=== PATIENT | female | born 1985 | race Caucasian/White ===

== ENCOUNTER 2024-12-08 16:04 | Emergency (ER) | payer SELFPAY ==
[2024-12-08] VITALS (8 sets, daily range): BP systolic 107–128; BP diastolic 73–93; PULSE 93–107; RESP 15–18; TEMP 36.6–36.7; O2SAT 95–100; BMI 27.1
--- NOTE | 2024-12-08 16:17 | CT_ITS ---
PROCEDURE INFORMATION: Exam: CT Head Without Contrast Exam date and time: 12/08/2024 5:51 PM Age: 39 years old Clinical indication: Other: Seizure TECHNIQUE: Imaging protocol: Computed tomography of the head without contrast. Radiation optimization: All CT scans at this facility use at least one of these dose optimization techniques: automated exposure control; mA and/or kV adjustment per patient size (includes targeted exams where dose is matched to clinical indication); or iterative reconstruction. COMPARISON: No relevant prior studies available. FINDINGS: Brain: Normal. No hemorrhage. Unremarkable white matter. No mass effect. Cerebral ventricles: No ventriculomegaly. Paranasal sinuses: Visualized sinuses are unremarkable. No fluid levels. Mastoid air cells: Visualized mastoid air cells are well aerated. Bones: Unremarkable. No acute fracture. Soft tissues: Unremarkable. IMPRESSION: No acute intracranial abnormality.
--- NOTE | 2024-12-08 16:17 | ECG_ITS ---
APPROVED REPORT Exam: Resting ECG HR:97 bpm ECG Measurements Heart Rate 97 AXES MO 163 P 66 QRSd 73 QRS 58 QT 336 T 57 QTc 391 Conclusion SINUS RHYTHM WITH OCCASIONAL VENTRICULAR PREMATURE COMPLEXES SEPTAL MYOCARDIAL INFARCTION , PROBABLY OLD [40+ ms Q WAVE IN V1/V2] ABNORMAL ECG UNCONFIRMED REPORT Electronically signed by : Wyatt Hadadd, 12/08/2024 23:34:48
[2024-12-08] MEDS: 0.9 % SODIUM CHLORIDE 1000ML 1,000 ML 999 ML IV (16:23)
[2024-12-08] MEDS: ONDANSETRON 4MG/2ML VIAL 4 MG IV (16:23)
--- NOTE | 2024-12-08 16:23 | ED_ITS ---
<Statement entered by Chuck Haddad MD - 12/08/24 23:33> I was consulted by the DOMINGO, and we discussed the complexity of the problems being addressed. I approved the treatment and management plan for this patient's care in the emergency department, thus performing a substantive portion of the medical decision making. Chuck Haddad MD, YESSICA, FACEP Discharge Plan Disposition Patient Disposition: Home, Self-Care Prescriptions Prescriptions: New levetiracetam [Keppra] 500 mg tablet 500 mg PO Q12H 28 Days Qty: 56 0RF Referrals Follow up/Referrals: Martha Posada MD [Staff Physician, Neurology] - See instructions Activity Restrictions/Add. Instructions Additional Instructions/Restrictions: Increase fluids and rest. Take meds as directed. Please follow-up with Dr. Posada as instructed. Please return to the ED if any problems or concerns Clinical Impressions Clinical Impression: Seizure Instructions Patient Instructions: DI for Syncope in Adults (Fainting), DI for Seizure (Not Epilepsy/Seizure Disorder) Print Language Print Language: Indian Discharge ED Provider: Chuck Haddad General Adult HPI General Chief complaint: Syncope Stated complaint: Seizure Time Seen by Provider: 12/08/24 16:17 History of Present Illness HPI narrative: 39-year-old female presents to the ED via EMS after having a questionable seizure while shopping at [facility]. She says she went to the vitamin section to get a vitamin and states that she saw flashing lights and ended up on a stretcher going out of [facility]. States that her witnessed a blank stare and called EMS. EMS stated that patient had a seizure. Patient has had seizures as a young child when her blood sugar dropped or when she saw flashing lights. But she has not had seizures in many many years. Patient was postictal when EMS arrived. Patient did state that she ate before she arrived to the ED today. Patient at this point feels nauseous and slightly still postictal on arrival to the ED. She says that she had gone to [facility] to get her grandchild. She has no other problems or concerns today. Related Data Previous Rx's ?Medication ?Instructions ?Recorded levetiracetam 500 mg tablet 500 mg PO Q12H 28 days #56 tabs 12/08/24 (Keppra) Allergies Allergy/AdvReac Type Severity Reaction Status Date / Time prochlorperazine (From AdvReac Anxiety Verified 12/08/24 16:21 Compazine) [facility] Disclaimer: The information contained in this section may have been updated after the patient was seen, as this information can be updated by other users. Social History Smoking Status: Former smoker alcohol intake: former current occupational status: other Travel in the last 8 weeks?: None ROS Obtained: Yes Systems reviewed as appropriate & no additional complaints except as documented Constitutional Constitutional: Reports as per HPI Physical Exam General General appearance: alert Head Head exam: atraumatic and normocephalic Eye Eye exam: Present normal appearance, PERRL and EOMI ENT ENT exam: Present normal oropharynx and mucous membranes moist Neck Neck exam: Present full ROM and trachea midline Chest Chest inspection: Present normal inspection Respiratory Respiratory exam: Present normal lung sounds bilaterally Cardiovascular Cardiovascular exam: Present regular rate, normal rhythm, normal heart sounds, +S1 and +S2 Abdominal Exam Abdominal exam: Present soft and normal bowel sounds Extremities Exam Extremities exam: Present normal inspection, full ROM and normal capillary refill Back Exam Back exam: Present normal inspection Neurological Exam Neurological exam: Present alert, oriented X3, normal gait and other (Patient remains postictal and slow to answer but alert and oriented) Skin Skin exam: Present warm, dry and intact Medical Decision Making Medical Records Medical records reviewed: Yes I reviewed the patient's medical records. Screening: Per USPSTF and CDC recommendations, given the prevalence of disease in our region, it is our hospital?s policy to screen for HIV and viral Hepatitis for all patients aged 18 and over and those with ongoing risk factors. Jed Inquiry Pt receiving controlled substance: No Vital Signs: 12/08/24 16:21 12/08/24 16:29 12/08/24 16:30 Temperature 97.8 F 97.8 F Temperature Source Oral Oral Pulse Rate 93 H 102 H Pulse Rate [Right] 93 H Respiratory Rate 16 16 18 Blood Pressure 116/93 H 115/88 Blood Pressure [Right Arm] 116/93 H Blood Pressure Mean 99 Blood Pressure Mean [Right Arm] 100 Blood Pressure Source Automatic Cuff Blood Pressure Source [Right Arm] Automatic Cuff Blood Pressure Position Supine Blood Pressure Position [Right Arm] Supine 02 Sat by Pulse Oximetry 100 100 96 Oxygen Delivery Method Room Air Room Air 12/08/24 17:00 12/08/24 17:30 12/08/24 18:00 Temperature Temperature Source Pulse Rate 102 H 107 H 99 H Pulse Rate [Right] Respiratory Rate 18 17 17 Blood Pressure 107/73 L 118/90 114/84 Blood Pressure [Right Arm] Blood Pressure Mean 84 Blood Pressure Mean [Right Arm] Blood Pressure Source Blood Pressure Source [Right Arm] Blood Pressure Position Blood Pressure Position [Right Arm] 02 Sat by Pulse Oximetry 95 98 96 Oxygen Delivery Method Room Air Room Air 12/08/24 19:30 12/08/24 19:57 Temperature 98.0 F Temperature Source Oral Pulse Rate 98 H 96 H Pulse Rate [Right] Respiratory Rate 15 15 Blood Pressure 128/78 128/78 Blood Pressure [Right Arm] Blood Pressure Mean Blood Pressure Mean [Right Arm] Blood Pressure Source Blood Pressure Source [Right Arm] Blood Pressure Position Supine Blood Pressure Position [Right Arm] 02 Sat by Pulse Oximetry 96 Oxygen Delivery Method Room Air Lab Data Lab Results 12/08/24 16:00: WBC 12.6 H, RBC 4.57, Hgb 13.1, Hct 40.6, MCV 88.8, MCH 28.7, MCHC 32.3, RDW 12.2, Plt Count 430 H, MPV 10.2, Neut % (Auto) 44.2, Lymph % (Auto) 47.6, [place] % (Auto) 6.3, Eos % (Auto) 1.0, Baso % (Auto) 0.6, Neut # (Auto) 5.6, Lymph # (Auto) 6.0 H, [place] # (Auto) 0.8, Eos # (Auto) 0.1, Baso # (Auto) 0.1, Total Counted 100, Neutrophils % (Manual) 40 L, Lymphocytes % (Manual) 56 H, Monocytes % (Manual) 2, Eosinophils % (Manual) 1, Basophils % (Manual) 1.0, Platelet Estimate Slight increase, Giant Platelets 1+, Sodium 138, Potassium 3.4 L, Chloride 99, Carbon Dioxide 18 L, Anion Gap 24.4 H, BUN 13, Creatinine 0.70, Estimated Creat Clear 116, Estimated GFR 92, Est GFR ( Amer) 112, Glucose 90, Calcium 9.6, Magnesium 2.3, Total Bilirubin 0.5, AST 46 H , ALT 30, Alkaline Phosphatase 76, Total Creatine Kinase 109, Total Protein 8.4 H, Albumin 5.1 H, Globulin 3.3 H, Albumin/Globulin Ratio 1.5, Lipase 90, HCV Ab REANNA w/Rflx PCR Qn Negative, HIV Ag/Ab Combo Qual Negative 12/08/24 16:25: Urine HCG, Qual Negative 12/08/24 17:21: Urine Color Yellow, Urine Appearance Clear, Urine pH 5.5, Ur Specific Martin 1.020, Urine Protein 1+ A, Urine Glucose (UA) Negative, Urine Ketones Negative, Urine Blood Trace-i, Urine Nitrate Negative, Urine Bilirubin Negative, Urine Urobilinogen 0.2, Ur Leukocyte Esterase Negative, Urine RBC 3-5, Urine WBC Occasional, Ur Squamous Epith Cells 5-10, Urine Bacteria 1+ 12/08/24 17:23: Urine Opiates Screen Negative, Urine Methadone Screen Negative, Ur Barbituates Screen Negative, Ur Phencyclidine Scrn Negative, Ur Amphetamines Screen Negative, U Benzodiazepines Scrn Negative, Urine Cocaine Screen Negative, U Marijuana (THC) Screen Negative 12/08/24 17:35: Lactate 1.4 12/08/24 16:00 12/08/24 16:00 Orders (Tests/Meds): ED MEDICATIONS Discontinued Medications Generic Name Dose Route Start Last Admin Trade Name Freq PRN Reason Stop Dose Admin Sodium Chloride 1,000 mls @ 999 mls/hr 12/08/24 16:16 12/08/24 16:23 Sod Chlor 0.9% 1000ml Bag IV 12/08/24 17:16 999 mls/hr .Q1H1M ONE Administration Levetiracetam 1,500 mg/ Sodium 115 mls @ 230 mls/hr 12/08/24 16:43 12/08/24 16:53 Chloride IV 12/08/24 16:44 230 mls/hr ONCE ONE Administration Ketorolac Tromethamine 30 mg 12/08/24 19:44 12/08/24 19:47 Ketorolac 30mg/Ml Vial IV 12/08/24 19:45 30 mg ONCE ONE Administration Ondansetron HCl 4 mg 12/08/24 16:17 12/08/24 16:23 Ondansetron 4mg/2ml Vial IV 12/08/24 16:18 4 mg ONCE ONE Administration Potassium Chloride 40 meq 12/08/24 17:45 12/08/24 18:28 Potassium Chloride 20meq Tab PO 12/08/24 17:46 40 meq ONCE ONE Administration ORDERS Category Date Time Status CT head/brain wo con Stat Cat Scan 12/08/24 16:17 Completed CBC [Complete Blood Count Auto Diff] Stat Lab 12/08/24 16:00 Completed Comprehensive Metabolic Panel Stat Lab 12/08/24 16:00 Completed Creatine Kinase Stat Lab 12/08/24 16:00 Completed Drug Screen,Urine Stat Lab 12/08/24 17:23 Completed HIV Combo Stat Lab 12/08/24 16:00 Completed Hepatitis C Ab Qual. W/ RFX Stat Lab 12/08/24 16:00 Completed Lactic Acid Stat Lab 12/08/24 17:35 Completed Lipase Stat Lab 12/08/24 16:00 Completed Magnesium Stat Lab 12/08/24 16:00 Completed Urinalysis and Microscopic Stat Lab 12/08/24 17:21 Completed Urine , HCG Qual. Stat Lab 12/08/24 16:25 Completed Medical Decision Narrative: patient is a 39-year-old female presenting to the emergency department for evaluation of seizure while at [facility]. Patient is hemodynamically stable and nontoxic-appearing upon arrival, afebrile. Differential diagnosis includes seizure, syncope, among others. Workup will be conducted with hematologic labs, specific imaging, provocative tests. Initial inventions include crystalloid bolus, analgesics. Initial workup reviewed by me hematologic labs are remarkable for elevated white count of 12.6, hypokalemia. Imaging informally interpreted by me and remarkable for nothing acute on CT scan. Formal imaging read remarkable for nothing acute. Upon repeat evaluation patient's pain is improved. Patient is safe for discharge home. Discussed with patient and her that she is not to drive for the next 90 days as she has had a seizure. She is going to follow-up with Dr. Posada which is neurology. Critical Care Critical Care Time Critical Care Time: No
[2024-12-08 16:28] LABS: Hematocrit 40.6 % (37.0-47.0); Hemoglobin 13.1 g/dL (12.2-16.2); Immature Granulocytes % 0.3 %; Mean Corpuscular HGB Conc 32.3 g/dL (31.8-35.4); Mean Corpuscular Hemoglobin 28.7 pg (27.0-31.2); Mean Corpuscular Volume 88.8 fl (81-99); Nucleated Red Blood Cells % 0 %; Platelet Count 430 K/mm3 (142-424); Red Blood Count 4.57 M/mm3 (4.20-5.40); Red Cell Distribution Width-SD 39.4 fL; White Blood Count 12.6 K/mm3 (4.8-10.8)
[2024-12-08 16:34] LABS: Creatine Kinase 109 U/L (30-135)
[2024-12-08 16:35] LABS: Alanine Aminotransferase 30 U/L (12-78); Albumin Level 5.1 g/dl (3.5-5.0); Albumin/Globulin Ratio 1.5 (1.1-1.8); Alkaline Phosphatase 76 U/L (38-126); Anion Gap 24.4 mEq/L (5-15); Aspartate Amino Transferase 46 U/L (14-36); Bilirubin,Total 0.5 mg/dl (0.2-1.3); Blood Urea Nitrogen 13 mg/dl (7-17); Calcium 9.6 mg/dl (8.4-10.2); Carbon Dioxide 18 mmol/L (22.0-30.0); Chloride 99 mmol/L (98-107); Creatinine Clearance Estimated 116 mL/min (50-200); Creatinine,Serum 0.70 mg/dl (0.52-1.04); Estimated Glomerular Filt Rate 92 ml/min (>60); GFR (African American) 112 ML/MIN (>60); Globulin 3.3 g/dL (1.3-3.2); Glucose 90 mg/dl (74-100); Lipase 90 U/L (23-300); Magnesium 2.3 mg/dl (1.6-2.3); Potassium 3.4 mmoL/L (3.5-5.1); Sodium 138 mmol/L (136-145); Total Protein,Serum 8.4 g/dl (6.3-8.2)
[2024-12-08] MEDS: levETIRAcetam 1,500 MG in 0.9 % SODIUM CHLORIDE 100 ML 230 MG IV (16:53)
--- NOTE | 2024-12-08 17:17 | PC.NURSE ---
pt to the restroom
[2024-12-08 17:27] LABS: Microscopic, Urine URINE MICROSCOPIC (MICROSCOPIC)
--- NOTE | 2024-12-08 17:28 | PC.NURSE ---
Pt reports that her head doesn't feel right. pt is unable to explain what it feels like. Notified provider.
[2024-12-08 17:32] LABS: Bilirubin,Urine Negative (Negative); Color,Urine YELLOW (Yellow); Glucose,Urine (UA) Negative (Negative); Ketones,Urine Negative (Negative); Leukocyte Esterase,Urine Negative (Negative); PH,Urine 5.5 (5.0-8.5); Protein,Urine 1+ (Negative); Specific Gravity, Urine 1.020 (1.005-1.030); Urobilinogen,Urine 0.2 EU/dl (0.2)
[2024-12-08 17:33] LABS: Hepatitis C Ab Qual. W/ RFX NEGATIVE (Negative)
[2024-12-08 17:35] LABS: Urine Pregnancy, HCG Qual. Negative (Negative)
[2024-12-08 17:37] LABS: Giant Platelets 1+; Total Cells Counted 100
[2024-12-08 17:44] LABS: Amphetamine/Metha Screen,Urine Negative ng/ml (<1000); Barbiturates Screen,Urine Negative ng/ml (<200)
[2024-12-08 17:45] LABS: Benzodiazepines Screen,Urine Negative ng/ml (<200)
[2024-12-08 17:47] LABS: Methadone Screen,Urine Negative ng/ml (<300)
--- NOTE | 2024-12-08 17:47 | PC.NURSE ---
pt going for CT at this time via bed with mechanical engineering technician
[2024-12-08 17:48] LABS: Opiate Screen,Urine Negative ng/ml (<300); Phencyclidine Screen,Urine Negative ng/ml (<25)
[2024-12-08 17:52] LABS: Bacteria,Urine 1+ /lpf; WBC,Urine Occasional #/hpf (0-3)
[2024-12-08] MEDS: POTASSIUM CHLORIDE 20MEQ TAB 40 MEQ PO (18:28)
[2024-12-08] MEDS: KETOROLAC 30MG/ML VIAL 30 MG IV (19:47)
== END 2024-12-08 20:11 | disposition home or self-care (01) ==
PROVIDERS: Nurse Practitioner; Emergency Provider Student in an Organized Health Care Education/Training Program
DX: R56.9 Unspecified convulsions (principal); E87.6 Hypokalemia; R11.0 Nausea; Z87.891 Personal history of nicotine dependence; Z11.59 Encounter for screening for other viral diseases; Z11.4 Encounter for screening for human immunodeficiency virus [HIV]
CPT/HCPCS: 70450; 80053; 80307; 81001; 81025; 82550; 83605; 83690; 83735; 85007; 85025; 85027; 86803; 87389; 93005; 96361; 96374; 96375; 99285; J1885; J1953; J2405; J7030

== ENCOUNTER 2024-12-14 06:15 | Emergency (ER) | payer BC, SELFPAY ==
[2024-12-14] VITALS (10 sets, daily range): BP systolic 115–132; BP diastolic 79–97; PULSE 72–92; RESP 16–31; TEMP 36.9–37.1; O2SAT 96–100; BMI 26.5
--- NOTE | 2024-12-14 06:28 | ECG_ITS ---
APPROVED REPORT Exam: Resting ECG HR:88 bpm ECG Measurements Heart Rate 88 AXES [place] 189 P 60 QRSd 62 QRS 43 QT 332 T 53 QTc 378 Conclusion SINUS RHYTHM LOW QRS VOLTAGE IN PRECORDIAL LEADS [QRS DEFLECTION < 1.0 mV IN CHEST LEADS] No STEMI Electronically signed by : DARYL JUDGE, 12/16/2024 07:07:48
--- NOTE | 2024-12-14 06:29 | XR_ITS ---
FINAL REPORT CLINICAL HISTORY: seizures, looking for possible infectious source COMPARISON: None FINDINGS: A single frontal view of the chest was obtained. No acute pulmonary opacity is present. There is no evidence of effusion or pneumothorax. Mediastinum is unremarkable. Heart size is normal. IMPRESSION: No acute abnormality. Reviewed, Interpreted and Dictated by Leatha Cerda MD Transcribed by Katalina Larsen Authenticated and [facility]
--- NOTE | 2024-12-14 06:37 | HMH.EDGENADL ---
Discharge Plan Disposition Patient Disposition: Xfer Other Condition: Good Prescriptions Prescriptions: No Action levetiracetam [Keppra] 500 mg tablet 500 mg PO Q12H 28 Days Qty: 56 0RF Clinical Impressions Clinical Impression: Seizure-like activity Instructions Patient Instructions: DI for Seizure Disorder -- Adult, DI for Seizure (Not Epilepsy/Seizure Disorder) Print Language Print Language: Faroese Discharge ED Provider: Jag Winter General Adult HPI <Jag Winter MD - Last Filed: 12/14/24 06:54> General Chief complaint: Seizure Stated complaint: multiple seizures Time Seen by Provider: 12/14/24 06:15 Mode of Arrival: Ambulatory Source of Information: Patient Description of Symptoms (Recalled from ER Triage Doc. by RN): pt presents to the ED d/t complaints of four possible seizures. pt had first seizure on tuesday, pt given keppra 500 mg that she took this morning at 0430. pt states during some of her seizure she would tense up and stopped breathing at one point for about 10-15 seconds. pr pt also repeated herself twice in the car and did not return to full baseline in between seizures while laying in bed. pt reports ongoing Headache same as yesterday. History of Present Illness HPI narrative: 39-year-old female presents to the ER with family for concerns of seizures. Reportedly as a child, patient had verbal seizures and seizures where she spaced out but those resolved with age. Patient had been completely normal until 5 days ago (Tuesday) when she had her first ever convulsive seizure. She was brought to this ER and received an evaluation that was relatively unremarkable and was discharged on Keppra. Patient and family at bedside reports they have been struggling to get any appointments for neurology because every office is 3 to 4 months out. Since the seizure on Tuesday, patient has had chronic headache with no numbness, tingling, or weakness, but she has continued to feel foggy since that time. reports that patient did not have any seizures on Tuesday, Tuesday, or Tuesday, but that yesterday she had 1 episode where she appeared to stare off into space and not be aware of what was going on. This morning patient took her regular Keppra but 1 hour prior to arrival she had a seizure while laying with her . He states her head was on his chest and she stopped breathing for 10 to 15 seconds but was having abnormal movements and seemed like she was pushing on his chest. This did not last long but she was foggy afterwards. She did eventually return to her current baseline (feeling foggy but oriented and moving independently), she then had 2 more brief convulsive seizures. She has not fallen and struck her head, she returns to her current baseline in between each of these episodes as well. They got in the car and on the way here patient had an episode where she was looking at the cain and made multiple repetitive statements about how her and son would really like the cain tonight. Patient does not remember this happening. She is back to baseline now. states that patient has not truly been at a normal baseline in the last week and that her current baseline is foggy but oriented and able to move independently. Patient denies any numbness, tingling, or weakness. She states before her seizures happen she often sees fireworks in her vision and describes [id number] flashers. states he has not noticed any directional eye deviation during seizures. Patient has had no recent trauma, no falls, no recent illness, she has no fevers, chills, chest pain, difficulty breathing, nausea, vomiting, diarrhea, dysuria, hematuria, or any other associated symptoms of illness. She is taking her Keppra as prescribed. Related Data Previous Rx's ?Medication ?Instructions ?Recorded levetiracetam 500 mg tablet 500 mg PO Q12H 28 days #56 tabs 12/08/24 (Keppra) Allergies Allergy/AdvReac Type Severity Reaction Status Date / Time prochlorperazine (From AdvReac Anxiety Verified 12/08/24 16:21 Compazine) [facility] <Jag Winter MD - Last Filed: 12/14/24 06:54> [facility] Disclaimer: The information contained in this section may have been updated after the patient was seen, as this information can be updated by other users. Social History (Updated 12/08/24 @ 20:09 by Nelda Solo (ED), PHYSICIAN LIAISON) Smoking Status: Never smoker alcohol intake: former current occupational status: other Travel in the last 8 weeks?: None Have you lived/traveled outside US in past 30 days?: No Contact w/someone who lives/traveled outside US past 30 days?: No Exposure to someone with infectious disease in past 14 days?: No Do you have a fever (greater than 100.4 F or 38 C)?: No Have you tested positive for COVID-19?: No Exposed to someone with COVID-19 in past 14 days?: No Do you have a sore throat?: No Do you have a cough?: No Do you have any weakness?: No Do you have any diarrhea?: No Are you experiencing any unusual bleeding?: No Do you have any muscle aches/pain?: No Do you have any abdominal pain?: No Are you experiencing loss of taste or smell?: No <Jag Winter MD - Last Filed: 12/14/24 06:54> ROS Obtained: Yes Systems reviewed as appropriate & no additional complaints except as documented per HPI Physical Exam <Jag Winter MD - Last Filed: 12/14/24 06:54> General General appearance: alert and in no apparent distress Comment: Patient does not appear to be in acute distress but appears that she does not feel well Head Head exam: atraumatic and normocephalic Eye Eye exam: Present PERRL and EOMI; Absent conjunctival injection ENT ENT exam: Present mucous membranes moist Neck Neck exam: Present normal inspection and full ROM; Absent tenderness or meningismus Chest Chest inspection: Present symmetric chest wall rise; Absent tenderness Respiratory Respiratory exam: Present normal lung sounds bilaterally; Absent respiratory distress, wheezes or stridor Cardiovascular Cardiovascular exam: Present regular rate and normal rhythm Abdominal Exam Abdominal exam: Present soft; Absent distention, tenderness, guarding or rebound Extremities Exam Extremities exam: Present full ROM; Absent tenderness, edema or joint swelling Back Exam Back exam: Present full ROM; Absent tenderness Neurological Exam Neurological exam: Present alert, oriented X3, CN II-XII intact, normal gait (Walking slow on arrival to the ER but normal-appearing gait) and other (Normal finger-nose and [id number], no cerebellar symptoms, NIH 0); Absent motor sensory deficit Psychiatric Psychiatric exam: Present normal affect and normal mood Skin Skin exam: Present warm and dry Medical Decision Making <Jag Winter MD - Last Filed: 12/14/24 06:54> Medical Records Medical records reviewed: Yes I reviewed the patient's medical records. Screening: Per USPSTF and CDC recommendations, given the prevalence of disease in our region, it is our hospital?s policy to screen for HIV and viral Hepatitis for all patients aged 18 and over and those with ongoing risk factors. MR Comment: Unremarkable laboratory workup on 12/08/2024 aside from mild leukocytosis, thrombocythemia, slight AST elevation and elevated anion gap none of which are specific for any exact pathology. CT head from 12/08/2024 unremarkable. Jed Inquiry Pt receiving controlled substance: No Vital Signs: 12/14/24 06:24 12/14/24 06:30 12/14/24 06:59 Temperature 98.4 F Temperature Source Oral Pulse Rate 78 89 Pulse Rate [Right Radial] 92 H Respiratory Rate 17 19 31 H Blood Pressure 122/97 H 124/94 H Blood Pressure [Right Arm] 120/89 Blood Pressure Mean Blood Pressure Mean [Right Arm] 99 Blood Pressure Position [Right Arm] Supine 02 Sat by Pulse Oximetry 98 96 98 Oxygen Delivery Method Room Air Room Air Room Air 12/14/24 07:30 12/14/24 08:00 Temperature Temperature Source Pulse Rate 80 78 Pulse Rate [Right Radial] Respiratory Rate 26 H 21 Blood Pressure 119/86 127/86 Blood Pressure [Right Arm] Blood Pressure Mean 99 Blood Pressure Mean [Right Arm] Blood Pressure Position [Right Arm] 02 Sat by Pulse Oximetry 100 98 Oxygen Delivery Method Room Air Room Air Lab Data Lab Results 12/14/24 06:23: WBC 8.4, RBC 4.57, Hgb 13.3, Hct 40.6, MCV 88.8, MCH 29.1, MCHC 32.8, RDW 12.2, Plt Count 370, MPV 10.0, Neut % (Auto) 61.0, Lymph % (Auto) 29.9, [place] % (Auto) 6.3, Eos % (Auto) 1.8, Baso % (Auto) 0.6, Neut # (Auto) 5.2, Lymph # (Auto) 2.5, [place] # (Auto) 0.5, Eos # (Auto) 0.2, Baso # (Auto) 0.1, Sodium 139, Potassium 4.1, Chloride 99, Carbon Dioxide 30, Anion Gap 14.1, BUN 13, Creatinine 0.70, Estimated Creat Clear 114, Estimated GFR 92, Est GFR ( Amer) 112, Glucose 98, Calcium 9.5, Total Bilirubin 0.4, AST 29, ALT 17, Alkaline Phosphatase 67, Total Protein 8.2, Albumin 4.8, Globulin 3.4 H, Albumin/Globulin Ratio 1.4, Serum HCG, Qual Negative, Plasma/Serum Alcohol < 10 12/14/24 06:29: VBG pH 7.31, VBG pCO2 48.0, VBG pO2 27.0 L, VBG HCO3 23.7, VBG Total CO2 25.2, VBG O2 Saturation 57.4, VBG Base Excess -2.6 L, VBG Lactic Acid 1.5 12/14/24 06:50: Urine Color Yellow, Urine Appearance Clear, Urine pH 6.0, Ur Specific [place] 1.010, Urine Protein Negative, Urine Glucose (UA) Negative, Urine Ketones Negative, Urine Blood Trace-i, Urine Nitrate Negative, Urine Bilirubin Negative, Urine Urobilinogen 0.2, Ur Leukocyte Esterase Negative, Urine RBC None, Urine WBC Occasional, Ur Squamous Epith Cells 5-10, Urine Bacteria 1+ 12/14/24 06:23 12/14/24 06:23 Orders (Tests/Meds): ED MEDICATIONS Discontinued Medications Generic Name Dose Route Start Last Admin Trade Name Ava PRN Reason Stop Dose Admin Acetaminophen 1,000 mg 12/14/24 06:29 12/14/24 06:39 Acetaminophen 500mg Tab PO 12/14/24 06:30 1,000 mg ONCE ONE Administration Levetiracetam 2,500 mg/ Sodium 125 mls @ 250 mls/hr 12/14/24 06:29 12/14/24 06:40 Chloride IV 12/14/24 06:30 250 mls/hr ONCE ONE Administration Lactated Ringer's 1,000 mls @ 999 mls/hr 12/14/24 06:29 12/14/24 06:40 Lactated Ringer's 1000 Ml Bag IV 12/14/24 07:29 999 mls/hr .Q1H1M ONE Administration Ketorolac Tromethamine 15 mg 12/14/24 06:29 12/14/24 06:39 Ketorolac 30mg/Ml Vial IV 12/14/24 06:30 15 mg ONCE ONE Administration ORDERS Category Date Time Status CXR --portable [XR chest portable] Stat Exams 12/14/24 06:29 Completed CBC w/Auto Diff [Complete Blood Count Auto Diff] Stat Lab 12/14/24 06:23 Completed CMP [Comprehensive Metabolic Panel] Stat Lab 12/14/24 06:23 Completed Ethanol [Ethyl Alcohol] Stat Lab 12/14/24 06:23 Completed HCG Qualitative, Serum Stat Lab 12/14/24 06:23 Completed Levetiracetam (Keppra) Stat Lab 12/14/24 06:23 Received UDS [Drug Screen,Urine] Stat Lab 12/14/24 06:55 Received Urinalysis and Microscopic Stat Lab 12/14/24 06:50 Completed VBG [Venous Blood Gas] Stat RT 12/14/24 06:29 Completed ECG Request Stat Y 12/14/24 06:29 Ordered Medical Decision Narrative: In summary, this 39-year-old female with childhood seizures and now recent episodes of seizures again presents to the emergency department today with seizure activity. On initial evaluation patient is hemodynamically stable, afebrile, independently ambulatory into the ER, GCS 15, patient appears generally sluggish but is answering all questions appropriately, no neurologic deficits, NIH 0, exam is otherwise benign and reassuring. No seizure activity on arrival to the ER. Differential diagnosis includes but is not limited to generalized seizure, focal seizure, absence seizure, I considered intracranial mass however CT head within the last week did not demonstrate acute intracranial bleed, mass, or midline shift. I considered the possibility of atypical migraine, also considered status epilepticus however patient returned to her current baseline in between each seizure episode this morning according to the , with patient's headache I had considered acute intracranial bleed however she has no red flag symptoms, no thunderclap onset, it has been chronic since the time of her initial seizure nearly a week ago, she reports being compliant with her medication but I did consider intoxication, metabolic abnormality, I considered hypoglycemia but fingerstick glucose on arrival was 97, also considered possible infectious etiology like pneumonia, urinary tract infection though I do not have high suspicion for these based on HPI and exam. Ruling out most morbid conditions for my assessment. Based on these concerns, I ordered serum labs, chest x-ray, drug screen, ethanol level, urine studies. ECG personally interpreted demonstrates normal sinus rhythm, rate 88, normal axis, normal AL and QTc, no STEMI. Patient received IV fluids, Keppra load, Tylenol and Toradol initially for treatment. Tylenol and Toradol are for patient's headache. Labs personally reviewed demonstrate normal CBC, VBG with normal pH, VBG lactic 1.5, additional labs pending at the time of physician handoff. Radiology studies pending at time of physician handoff. I anticipate this patient will likely need advanced workup and likely transfer to higher level of care for neurology workup and have communicated this with the oncoming physician. Patient handed off to Dr. Martinez in stable condition pending lab and imaging results. <Abimael Martinez, DO - Last Filed: 12/14/24 08:11> Vital Signs: 12/14/24 06:24 12/14/24 06:30 12/14/24 06:59 Temperature 98.4 F Temperature Source Oral Pulse Rate 78 89 Pulse Rate [Right Radial] 92 H Respiratory Rate 17 19 31 H Blood Pressure 122/97 H 124/94 H Blood Pressure [Right Arm] 120/89 Blood Pressure Mean Blood Pressure Mean [Right Arm] 99 Blood Pressure Position [Right Arm] Supine 02 Sat by Pulse Oximetry 98 96 98 Oxygen Delivery Method Room Air Room Air Room Air 12/14/24 07:30 12/14/24 08:00 Temperature Temperature Source Pulse Rate 80 78 Pulse Rate [Right Radial] Respiratory Rate 26 H 21 Blood Pressure 119/86 127/86 Blood Pressure [Right Arm] Blood Pressure Mean 99 Blood Pressure Mean [Right Arm] Blood Pressure Position [Right Arm] 02 Sat by Pulse Oximetry 100 98 Oxygen Delivery Method Room Air Room Air Lab Data Lab Results 12/14/24 06:23: WBC 8.4, RBC 4.57, Hgb 13.3, Hct 40.6, MCV 88.8, MCH 29.1, MCHC 32.8, RDW 12.2, Plt Count 370, MPV 10.0, Neut % (Auto) 61.0, Lymph % (Auto) 29.9, [place] % (Auto) 6.3, Eos % (Auto) 1.8, Baso % (Auto) 0.6, Neut # (Auto) 5.2, Lymph # (Auto) 2.5, [place] # (Auto) 0.5, Eos # (Auto) 0.2, Baso # (Auto) 0.1, Sodium 139, Potassium 4.1, Chloride 99, Carbon Dioxide 30, Anion Gap 14.1, BUN 13, Creatinine 0.70, Estimated Creat Clear 114, Estimated GFR 92, Est GFR ( Amer) 112, Glucose 98, Calcium 9.5, Total Bilirubin 0.4, AST 29, ALT 17, Alkaline Phosphatase 67, Total Protein 8.2, Albumin 4.8, Globulin 3.4 H, Albumin/Globulin Ratio 1.4, Serum HCG, Qual Negative, Plasma/Serum Alcohol < 10 12/14/24 06:29: VBG pH 7.31, VBG pCO2 48.0, VBG pO2 27.0 L, VBG HCO3 23.7, VBG Total CO2 25.2, VBG O2 Saturation 57.4, VBG Base Excess -2.6 L, VBG Lactic Acid 1.5 12/14/24 06:50: Urine Color Yellow, Urine Appearance Clear, Urine pH 6.0, Ur Specific [place] 1.010, Urine Protein Negative, Urine Glucose (UA) Negative, Urine Ketones Negative, Urine Blood Trace-i, Urine Nitrate Negative, Urine Bilirubin Negative, Urine Urobilinogen 0.2, Ur Leukocyte Esterase Negative, Urine RBC None, Urine WBC Occasional, Ur Squamous Epith Cells 5-10, Urine Bacteria 1+ Orders (Tests/Meds): ED MEDICATIONS Discontinued Medications Generic Name Dose Route Start Last Admin Trade Name Freq PRN Reason Stop Dose Admin Acetaminophen 1,000 mg 12/14/24 06:29 12/14/24 06:39 Acetaminophen 500mg Tab PO 12/14/24 06:30 1,000 mg ONCE ONE Administration Levetiracetam 2,500 mg/ Sodium 125 mls @ 250 mls/hr 12/14/24 06:29 12/14/24 06:40 Chloride IV 12/14/24 06:30 250 mls/hr ONCE ONE Administration Lactated Ringer's 1,000 mls @ 999 mls/hr 12/14/24 06:29 12/14/24 06:40 Lactated Ringer's 1000 Ml Bag IV 12/14/24 07:29 999 mls/hr .Q1H1M ONE Administration Ketorolac Tromethamine 15 mg 12/14/24 06:29 12/14/24 06:39 Ketorolac 30mg/Ml Vial IV 12/14/24 06:30 15 mg ONCE ONE Administration ORDERS Category Date Time Status CXR --portable [XR chest portable] Stat Exams 12/14/24 06:29 Completed CBC w/Auto Diff [Complete Blood Count Auto Diff] Stat Lab 12/14/24 06:23 Completed CMP [Comprehensive Metabolic Panel] Stat Lab 12/14/24 06:23 Completed Ethanol [Ethyl Alcohol] Stat Lab 12/14/24 06:23 Completed HCG Qualitative, Serum Stat Lab 12/14/24 06:23 Completed Levetiracetam (Keppra) Stat Lab 12/14/24 06:23 Received UDS [Drug Screen,Urine] Stat Lab 12/14/24 06:55 Received Urinalysis and Microscopic Stat Lab 12/14/24 06:50 Completed VBG [Venous Blood Gas] Stat RT 12/14/24 06:29 Completed ECG Request Stat Y 12/14/24 06:29 Ordered Medical Decision Narrative: In summary, this 39-year-old female with childhood seizures and now recent episodes of seizures again presents to the emergency department today with seizure activity. On initial evaluation patient is hemodynamically stable, afebrile, independently ambulatory into the ER, GCS 15, patient appears generally sluggish but is answering all questions appropriately, no neurologic deficits, NIH 0, exam is otherwise benign and reassuring. No seizure activity on arrival to the ER. Differential diagnosis includes but is not limited to generalized seizure, focal seizure, absence seizure, I considered intracranial mass however CT head within the last week did not demonstrate acute intracranial bleed, mass, or midline shift. I considered the possibility of atypical migraine, also considered status epilepticus however patient returned to her current baseline in between each seizure episode this morning according to the , with patient's headache I had considered acute intracranial bleed however she has no red flag symptoms, no thunderclap onset, it has been chronic since the time of her initial seizure nearly a week ago, she reports being compliant with her medication but I did consider intoxication, metabolic abnormality, I considered hypoglycemia but fingerstick glucose on arrival was 97, also considered possible infectious etiology like pneumonia, urinary tract infection though I do not have high suspicion for these based on HPI and exam. Ruling out most morbid conditions for my assessment. Based on these concerns, I ordered serum labs, chest x-ray, drug screen, ethanol level, urine studies. ECG personally interpreted demonstrates normal sinus rhythm, rate 88, normal axis, normal AL and QTc, no STEMI. Patient received IV fluids, Keppra load, Tylenol and Toradol initially for treatment. Tylenol and Toradol are for patient's headache. Labs personally reviewed demonstrate normal CBC, VBG with normal pH, VBG lactic 1.5, additional labs pending at the time of physician handoff. Radiology studies pending at time of physician handoff. I anticipate this patient will likely need advanced workup and likely transfer to higher level of care for neurology workup and have communicated this with the oncoming physician. Patient handed off to Dr. Martinez in stable condition pending lab and imaging results. Dr. Martinez I received care from Dr. Winter this morning on this patient. At the time of handoff we were pending her laboratory workup. Labs personally interpreted by me demonstrate no actionable abnormalities. Due to the fact that this patient is experiencing increasing frequency of seizure-like activity and has a new baseline mental status from 1 week ago I do feel like she needs a more formal and urgent workup with neurology. I have formally consulted the neurology service at [facility] in [place]. After speaking with Dr. Mayen of the neurology service they have agreed to accept the patient for transfer to their facility for formal workup with EEG and MRI. Patient will be direct transfer admission to internal medicine service. Patient was transferred in stable condition. Critical Care <Jag Witner MD - Last Filed: 12/14/24 06:54> Critical Care Time Critical Care Time: No
[2024-12-14 06:39] LABS: Lactate Venous 1.5 mmol/L (0.4-2.0); VBG HCO3 23.7 mmol/L (23-30); VBG PCO2 48.0 mmol/L (35-51); VBG PH 7.31 mmol/L (7.31-7.41); VBG PO2 27.0 mmol/L (28-40)
[2024-12-14] MEDS: ACETAMINOPHEN 500MG TAB 1000 MG PO (06:39)
[2024-12-14] MEDS: KETOROLAC 30MG/ML VIAL 15 MG IV (06:39)
[2024-12-14] MEDS: LACTATED RINGERS 1000ML 1,000 ML 999 ML IV (06:40)
[2024-12-14] MEDS: levETIRAcetam 2,500 MG in 0.9 % SODIUM CHLORIDE 100 ML 250 MG IV (06:40)
[2024-12-14 06:45] LABS: Hematocrit 40.6 % (37.0-47.0); Hemoglobin 13.3 g/dL (12.2-16.2); Immature Granulocytes % 0.4 %; Mean Corpuscular HGB Conc 32.8 g/dL (31.8-35.4); Mean Corpuscular Hemoglobin 29.1 pg (27.0-31.2); Mean Corpuscular Volume 88.8 fl (81-99); Nucleated Red Blood Cells % 0 %; Platelet Count 370 K/mm3 (142-424); Red Blood Count 4.57 M/mm3 (4.20-5.40); Red Cell Distribution Width-SD 39.2 fL; White Blood Count 8.4 K/mm3 (4.8-10.8)
[2024-12-14 06:52] LABS: Alanine Aminotransferase 17 U/L (12-78); Albumin Level 4.8 g/dl (3.5-5.0); Albumin/Globulin Ratio 1.4 (1.1-1.8); Alkaline Phosphatase 67 U/L (38-126); Anion Gap 14.1 mEq/L (5-15); Aspartate Amino Transferase 29 U/L (14-36); Bilirubin,Total 0.4 mg/dl (0.2-1.3); Blood Urea Nitrogen 13 mg/dl (7-17); Calcium 9.5 mg/dl (8.4-10.2); Carbon Dioxide 30 mmol/L (22.0-30.0); Chloride 99 mmol/L (98-107); Creatinine Clearance Estimated 114 mL/min (50-200); Creatinine,Serum 0.70 mg/dl (0.52-1.04); Estimated Glomerular Filt Rate 92 ml/min (>60); GFR (African American) 112 ML/MIN (>60); Globulin 3.4 g/dL (1.3-3.2); Glucose 98 mg/dl (74-100); Potassium 4.1 mmoL/L (3.5-5.1); Sodium 139 mmol/L (136-145); Total Protein,Serum 8.2 g/dl (6.3-8.2)
[2024-12-14 06:58] LABS: HCG Qualitative, Serum Negative (Negative)
[2024-12-14 06:58] LABS: Microscopic, Urine URINE MICROSCOPIC (MICROSCOPIC)
[2024-12-14 07:07] LABS: Bilirubin,Urine Negative (Negative); Color,Urine YELLOW (Yellow); Glucose,Urine (UA) Negative (Negative); Ketones,Urine Negative (Negative); Leukocyte Esterase,Urine Negative (Negative); PH,Urine 6.0 (5.0-8.5); Protein,Urine Negative (Negative); Specific Gravity, Urine 1.010 (1.005-1.030); Urobilinogen,Urine 0.2 EU/dl (0.2)
[2024-12-14 07:23] LABS: Bacteria,Urine 1+ /lpf; WBC,Urine Occasional #/hpf (0-3)
--- NOTE | 2024-12-14 07:28 | PC.NURSE ---
Addendum entered by Jordana Sheppard RN 12/14/24 08:35: Seizure Precautions in Place Original Note: Patient is alert and oriented, c/o ongoing headache. VSS. Respirations even and unlabored. at bedside. Patient denies needs at this time.
--- NOTE | 2024-12-14 07:30 | PC.NURSE ---
called [facility] per Dr Martinez for transfer for seizures. [facility] advised they would page neuro and call back.
--- NOTE | 2024-12-14 07:57 | PC.NURSE ---
Dr. Martinez speaking with Dr. Mayen at [facility] at this time
--- NOTE | 2024-12-14 08:05 | PC.NURSE ---
[facility] called back and advised they needed ss number and faxed face sheet as pt has not been in their care prior to this visit. She advised the Hospitalist will be calling back shortly
--- NOTE | 2024-12-14 09:03 | PC.NURSE ---
Patient accepted to [facility] per Dr. Hernandes, [facility] Room 635. Patient report called to VERNON Becerra.
--- NOTE | 2024-12-14 09:04 | PC.NURSE ---
called EMS to notify them of transport
[2024-12-14 09:55] LABS: Amphetamine/Metha Screen,Urine Negative ng/ml (<1000)
[2024-12-14 09:56] LABS: Barbiturates Screen,Urine Negative ng/ml (<200); Benzodiazepines Screen,Urine Negative ng/ml (<200)
[2024-12-14 10:24] LABS: Methadone Screen,Urine Negative ng/ml (<300)
[2024-12-14 10:25] LABS: Opiate Screen,Urine Negative ng/ml (<300)
--- NOTE | 2024-12-14 10:25 | PC.NURSE ---
EMS at [facility] for transport to [facility], [place].
[2024-12-14 10:50] LABS: Phencyclidine Screen,Urine Negative ng/ml (<25)
== END 2024-12-14 10:29 | disposition other institution (70) ==
PROVIDERS: Emergency Provider Emergency Medicine
DX: R56.9 Unspecified convulsions (principal)
CPT/HCPCS: 71045; 80053; 80177; 80307; 80320; 81001; 82803; 84703; 85025; 93005; 96361; 96374; 96375; 99285; J1885; J1953; J7120